=== PATIENT | female | born 1980 | race Caucasian/White ===

== ENCOUNTER 2020-05-26 01:33 | Emergency (ER) | payer MEDICAID ==
[~2020-05-26] VITALS: Ht 157.5 cm; Wt 60.4 kg
[2020-05-26 01:42] VITALS: BP 119/76
[2020-05-26] MEDS ORDERED: KETOROLAC 60 MG/2 ML VIAL IM ONE (01:55)
[2020-05-26 02:29] VITALS: BP 119/76
== END 2020-05-26 02:30 | disposition home or self-care (01) ==
LOC: MED 01:33
DX: R10.30 Lower abdominal pain, unspecified (principal); R19.7 Diarrhea, unspecified; R30.0 Dysuria; Z85.3 Personal history of malignant neoplasm of breast; Z98.890 Other specified postprocedural states
CPT/HCPCS: 81002; 81025; 96372; 99283; J1885

== ENCOUNTER 2020-12-26 12:38 | Emergency (ER) | payer MEDICAID ==
[~2020-12-26] VITALS: Ht 160 cm; Wt 67.1 kg
[2020-12-26 12:43] VITALS: BP 113/82
[2020-12-26 13:17] LABS: BASOPHILS % (AUTO) 0.4 % (0.0-2.0); EOSINOPHILS # (AUTO) 0.1 K/uL (0-0.4); EOSINOPHILS % (AUTO) 0.8 % (0.0-4.0); HEMATOCRIT 33.8 % (36-48); HEMOGLOBIN 10.8 g/dL (12.0-16.0); LYMPHOCYTES # (AUTO) 2.2 K/uL (2.5-16.5); LYMPHOCYTES % (AUTO) 24.5 % (20.5-51.1); MEAN CORPUSCULAR HEMOGLOBIN 26 pg (27-31); MEAN CORPUSCULAR HGB CONC 32 g/dL (33-37); MEAN CORPUSCULAR VOLUME 81.5 fL (80-94); MONOCYTES # (AUTO) 0.4 K/uL (0.8-1.0); MONOCYTES % (AUTO) 4.3 % (1.7-9.3); NEUTROPHILS # (AUTO) 6.2 K/uL (1.8-7.7); PLATELET COUNT (AUTO) 274 K/uL (140-450); RED BLOOD CELL COUNT(AUTO) 4.15 MIL/uL (4.20-5.40); RED CELL DISTRIBUTION WIDTH 18.6 % (11.6-13.7); WHITE BLOOD COUNT (AUTO) 8.8 K/uL (4.8-10.8)
[2020-12-26 13:37] LABS: ALBUMIN 3.8 g/dL (3.4-5.0); ANION GAP 12.4 (8-16); CARBON DIOXIDE 26.2 mmol/L (21-32); CREATININE 0.7 mg/dL (0.6-1.3); POTASSIUM 3.6 mmol/L (3.5-5.1); TOTAL BILIRUBIN 0.4 mg/dL (0.0-1.0)
[2020-12-26 14:22] LABS: APPEARANCE,URINE SL CLOUDY (CLEAR); BILIRUBIN,URINE NEGATIVE (NEGATIVE); BLOOD, URINE NEGATIVE (NEGATIVE); COLOR,URINE YELLOW (YELLOW); LEUKOCYTE ESTERASE ,URINE TRACE (NEGATIVE); NITRITE, URINE NEGATIVE (NEGATIVE); UGLUCOSE NEGATIVE (NEGATIVE)
[2020-12-26 14:25] LABS: RBC,URINE 0-5 /HPF (0-5); WBC,URINE 0-5 /HPF (0-5)
[2020-12-26] MEDS ORDERED: ONDA-24 PO (14:39)
[2020-12-26] MEDS ORDERED: FERR325E14 PO (14:39)
[2020-12-26] MEDS ORDERED: IBUP-2213 PO (14:39)
[2020-12-26] MEDS ORDERED: CEPH-588 PO ×2 (14:40→14:41)
[2020-12-26] MEDS: ACETAMINOPHEN 325 MG TAB PO ONE (14:51)
[2020-12-26] MEDS: ONDANSETRON 4 MG ODT PO ONE (14:52)
[2020-12-26 14:59] VITALS: BP 113/82
== END 2020-12-26 15:00 | disposition home or self-care (01) ==
LOC: MED 12:38
DX: N39.0 Urinary tract infection, site not specified (principal); R07.9 Chest pain, unspecified; D64.9 Anemia, unspecified; Z85.3 Personal history of malignant neoplasm of breast
CPT/HCPCS: 36415; 71045; 80053; 81001; 81025; 83690; 84484; 84702; 85025; 85379; 87086; 93005; 99285; Q0162

== ENCOUNTER 2021-02-03 13:57 | Emergency (ER) | payer MEDICAID ==
[~2021-02-03] VITALS: Ht 157.5 cm; Wt 61.2 kg
[~2021-02-03 13:57] MED LIST: CEPH-588 PO; FERR325E14 PO; IBUP-2213 PO; ONDA-24 PO
[2021-02-03 13:58] VITALS: BP 114/49
--- NOTE | 2021-02-03 14:08 | NUR ---
40 Y/O FEMALE C/O DYSURIA 02/14 DESCRIBES BURNING RADIATES TO MID LOWER BACK X 3 DAYS. PT DENIES N/V, DENIES FEVER/CHILLS, STATES SHE IS HAVING SUPRAPUBIC REGION. DENIES PMH NKA
--- NOTE | 2021-02-03 14:18 | NUR ---
ALEX Garcia at pt bedside for further evaluation.
[2021-02-03] MEDS ORDERED: NITR100C7 PO (14:38)
[2021-02-03 14:48] VITALS: BP 114/49
--- NOTE | 2021-02-03 14:49 | NUR ---
Patient discharged with v/s stable. Written and verbal after care instructions given FOR UTI and explained. Patient alert, oriented and verbalized understanding of instructions. Ambulatory with steady gait. All questions addressed prior to discharge. ID band removed. Patient advised to follow up with PMD. Rx of MACROBID PO 100MG CAP BID FOR 5 DAYS given. Patient educated on indication of medication including possible reaction and side effects. Opportunity to ask questions provided and answered.
== END 2021-02-03 14:49 | disposition home or self-care (01) ==
LOC: MED 13:57
DX: N39.0 Urinary tract infection, site not specified (principal); Z85.3 Personal history of malignant neoplasm of breast; Z79.899 Other long term (current) drug therapy
CPT/HCPCS: 36415; 81002; 81025; 87491; 99283

== ENCOUNTER 2021-02-05 11:09 | Emergency (ER) | payer MEDICAID ==
[~2021-02-05] VITALS: Ht 157.5 cm; Wt 65.3 kg
[~2021-02-05 11:09] MED LIST changes: +NITR100C7 PO
[2021-02-05 11:14] VITALS: BP 122/78
--- NOTE | 2021-02-05 11:18 | NUR ---
PT AMBULATED TO BED 3.
--- NOTE | 2021-02-05 11:22 | NUR ---
40 y/o F BIB self from home with c/c medication reaction. Patient A&Ox4, ambulatory, reports seen here for UTI and discharged with Macrobid on 02/03/21. Patient states medication compliance, however, began experiencing nausea, vomiting x 2 episodes, headache, subjective fever (home temporal temperature 97.0*) and abdominal pain. Patient reports R flank pain 5/10, sharp/intermittent, radiating to low back. Reports this abdominal pain is new from UTI symptoms and states "This pain wasn't here on Tuesday." Patient reports Tylenol "half a pill of 200mg" this morning @ 1AM with relief to symptoms. Patient denies any recent illness at home or Covid vaccinations. Last BM: Tuesday; normal. Bowel sounds normoactive x 4 quadrants; skin pink/dry/warm. LMP 01/30/2021. Bed locked in lowest position, side rails x 1, call light in reach. PMH: Anemia, breast cancer 8 yrs ago Meds: Macrobid NKA Sx: Denies
--- NOTE | 2021-02-05 11:40 | NUR ---
Dr. Roque is evaluating patient at bedside.
[2021-02-05] MEDS ORDERED: ONDANSETRON 4 MG ODT PO ONE (11:50)
--- NOTE | 2021-02-05 11:50 | NUR ---
Dr. Roque is reevaluating patient at bedside.
[2021-02-05] MEDS ORDERED: cephALEXin 500 MG CAP ONE (11:54)
[2021-02-05] MEDS ORDERED: cephALEXin 500 MG CAP PO ONE (11:55)
--- NOTE | 2021-02-05 12:04 | NUR ---
Urine sample collected, handed to CPT Marco at ER bedside.
[2021-02-05] MEDS ORDERED: CEPH-588 PO (12:23)
--- NOTE | 2021-02-05 12:39 | NUR ---
Patient resting in position of comfort; semi-fowlers. VSS; respirations even/unlabored. Bed locked in lowest position, side rails x 1, call light in reach.
[2021-02-05 12:45] VITALS: BP 122/78
== END 2021-02-05 12:45 | disposition home or self-care (01) ==
LOC: MED 11:09
DX: N30.90 Cystitis, unspecified without hematuria (principal); T37.8X5A Adverse effect of other specified systemic anti-infectives and antiparasitics, initial encounter; D64.9 Anemia, unspecified; Z85.3 Personal history of malignant neoplasm of breast; Y92.89 Other specified places as the place of occurrence of the external cause
CPT/HCPCS: 81002; 81025; 87086; 99283; Q0162

== ENCOUNTER 2022-04-12 12:01 | Emergency (ER) | payer MEDICAID ==
[~2022-04-12] VITALS: Ht 160 cm; Wt 58.1 kg
[~2022-04-12 12:01] MED LIST changes: +ONDA-188 PO; -ONDA-24 PO
[2022-04-12 12:05] VITALS: BP 111/72
--- NOTE | 2022-04-12 12:15 | NUR ---
COVID [place], FLU SWABS DONE.
--- NOTE | 2022-04-12 12:20 | NUR ---
BIB SELF C/O COUGH, 5/10 SORE THROAT X 1 WEEK AND C/O RUNNY NOSE & 2/10 MID CHEST PAIN WHILE COUGHING X 3 DAYS.
--- NOTE | 2022-04-12 12:35 | NUR ---
Patient being evaluated by ALEX GARCIA at [facility].
[2022-04-12] MEDS ORDERED: IBUP-2213 PO (12:46)
[2022-04-12] MEDS ORDERED: PROM118S5 PO (12:46)
[2022-04-12] MEDS ORDERED: BENZ-300 PO (12:46)
[2022-04-12 12:55] VITALS: BP 111/75
--- NOTE | 2022-04-12 12:59 | NUR ---
Patient discharged with v/s stable. Written and verbal after care instructions given and explained. Patient alert, oriented and verbalized understanding of instructions. Ambulatory with steady gait. All questions addressed prior to discharge. ID band removed. Patient advised to follow up with PMD. Rx of CEPACOL SORE THRAT LOZENGE,IBU,PROMETHAZINE given. Patient educated on indication of medication including possible reaction and side effects. Opportunity to ask questions provided and answered.
== END 2022-04-12 12:55 | disposition home or self-care (01) ==
LOC: MED 12:01
DX: J06.9 Acute upper respiratory infection, unspecified (principal); Z20.822 Contact with and (suspected) exposure to COVID-19; R09.81 Nasal congestion; J02.9 Acute pharyngitis, unspecified; Z79.899 Other long term (current) drug therapy; Z85.3 Personal history of malignant neoplasm of breast
CPT/HCPCS: 99283

== ENCOUNTER 2023-10-01 09:41 | Emergency (ER) | payer MEDICAID ==
[~2023-10-01] VITALS: Ht 157.5 cm; Wt 59.0 kg
[~2023-10-01 09:41] MED LIST changes: +BENZ-300 PO; +PROM118S5 PO
[2023-10-01 10:03] VITALS: BP 107/66; PULSE 82; RESP 16; TEMP 97.9; O2SAT 98
[2023-10-01 10:55] LABS: APPEARANCE,URINE CLEAR (CLEAR); BILIRUBIN,URINE NEGATIVE (NEGATIVE); BLOOD, URINE TRACE-I (NEGATIVE); COLOR,URINE YELLOW (YELLOW); LEUKOCYTE ESTERASE ,URINE NEGATIVE (NEGATIVE); NITRITE, URINE NEGATIVE (NEGATIVE); PH,URINE 7.5 (5.0-9.0); PROTEIN,URINE NEGATIVE (NEGATIVE); UGLUCOSE NEGATIVE (NEGATIVE); UROBILINOGEN,URINE 0.2 EU/dL (0.2 - 1)
[2023-10-01 12:10] VITALS: BP 108/66; PULSE 76; RESP 18; TEMP 98.2
[2023-10-01 12:13] LABS: BASOPHILS % (AUTO) 0.5 % (0.0-2.0); EOSINOPHILS # (AUTO) 0.1 K/uL (0-0.4); EOSINOPHILS % (AUTO) 1.5 % (0.0-4.0); HEMATOCRIT 31.4 % (36-48); HEMOGLOBIN 10.7 g/dL (12.0-16.0); LYMPHOCYTES # (AUTO) 2.6 K/uL (2.5-16.5); LYMPHOCYTES % (AUTO) 32.4 % (20.5-51.1); MEAN CORPUSCULAR HEMOGLOBIN 33 pg (27-31); MEAN CORPUSCULAR HGB CONC 34 g/dL (33-37); MEAN CORPUSCULAR VOLUME 96.2 fL (80-94); MONOCYTES # (AUTO) 0.5 K/uL (0.8-1.0); MONOCYTES % (AUTO) 6.6 % (1.7-9.3); NEUTROPHILS # (AUTO) 4.8 K/uL (1.8-7.7); PLATELET COUNT (AUTO) 279 K/uL (140-450); RED BLOOD CELL COUNT(AUTO) 3.26 MIL/uL (4.20-5.40); RED CELL DISTRIBUTION WIDTH 13.9 % (11.6-13.7); WHITE BLOOD COUNT (AUTO) 8.1 K/uL (4.8-10.8)
[2023-10-01] MEDS: KETOROLAC 30 MG/ML VIAL IM ONE (12:44)
[2023-10-01 12:48] LABS: ANION GAP 14.4 (8-16); CALCIUM 8.8 mg/dL (8.5-10.1); CARBON DIOXIDE 26.4 mmol/L (21-32); CREATININE 0.6 mg/dL (0.6-1.3); POTASSIUM 3.8 mmol/L (3.5-5.1)
[2023-10-01 12:52] LABS: ALBUMIN 3.1 g/dL (3.4-5.0); TOTAL BILIRUBIN 0.2 mg/dL (0.0-1.0); TOTAL PROTEIN, SERUM 7.6 g/dL (6.4-8.2)
[2023-10-01 12:59] LABS: LACTIC ACID 0.5 mmol/L (0.4-2.0)
[2023-10-01] MEDS ORDERED: ACET-10509 PO (13:30)
[2023-10-01] MEDS ORDERED: PHEN-1877 PO (13:30)
[2023-10-01] MEDS ORDERED: CYCL-711 PO (13:30)
[2023-10-01] MEDS ORDERED: LID5T TP (13:30)
[2023-10-01 13:39] VITALS: O2SAT 98
== END 2023-10-01 13:57 | disposition home or self-care (01) ==
LOC: MED 09:41
DX: R10.31 Right lower quadrant pain (principal); R30.0 Dysuria; Z79.899 Other long term (current) drug therapy
CPT/HCPCS: 36415; 74176; 80053; 81003; 81025; 83605; 83690; 85025; 87040; 96372; 99285; J1885

== ENCOUNTER 2023-10-17 23:02 | Emergency (ER) | payer MEDICAID ==
[~2023-10-17] VITALS: Ht 160 cm; Wt 58.1 kg
[~2023-10-17 23:02] MED LIST changes: +ACET-10509 PO; +CYCL-711 PO; +LID5T TP; +PHEN-1877 PO
[2023-10-17 23:15] VITALS: BP 112/71; PULSE 104; RESP 15; TEMP 98.7; O2SAT 99
[2023-10-17 23:47] LABS: APPEARANCE,URINE SL CLOUDY (CLEAR); BILIRUBIN,URINE NEGATIVE (NEGATIVE); BLOOD, URINE 3+ (NEGATIVE); COLOR,URINE RED (YELLOW); LEUKOCYTE ESTERASE ,URINE TRACE (NEGATIVE); NITRITE, URINE NEGATIVE (NEGATIVE); PH,URINE 6.5 (5.0-9.0); PROTEIN,URINE 3+ (NEGATIVE); UGLUCOSE NEGATIVE (NEGATIVE)
[2023-10-17 23:49] LABS: RBC,URINE 50-80 /HPF (0-5)
[2023-10-17 23:50] LABS: BACTERIA,URINE 1+ /HPF (None Seen); MUCUS,URINE None Seen /LPF (None Seen); SQUAMOUS EPITHELIAL CELL,UR 0-3 (FEW) /LPF (0-3 (FEW)); WBC,URINE 0-5 /HPF (0-5)
[2023-10-18 00:17] LABS: BASOPHILS % (AUTO) 0.5 % (0.0-2.0); EOSINOPHILS # (AUTO) 0.2 K/uL (0-0.4); EOSINOPHILS % (AUTO) 1.8 % (0.0-4.0); HEMATOCRIT 29.7 % (36-48); LYMPHOCYTES # (AUTO) 3.8 K/uL (2.5-16.5); LYMPHOCYTES % (AUTO) 43.3 % (20.5-51.1); MEAN CORPUSCULAR HEMOGLOBIN 32 pg (27-31); MEAN CORPUSCULAR HGB CONC 34 g/dL (33-37); MEAN CORPUSCULAR VOLUME 96.1 fL (80-94); MONOCYTES # (AUTO) 0.6 K/uL (0.8-1.0); NEUTROPHILS # (AUTO) 4.2 K/uL (1.8-7.7); NEUTROPHILS % (AUTO) 47.4 % (42.2-75.2); PLATELET COUNT (AUTO) 297 K/uL (140-450); RED BLOOD CELL COUNT(AUTO) 3.09 MIL/uL (4.20-5.40); RED CELL DISTRIBUTION WIDTH 14.3 % (11.6-13.7); WHITE BLOOD COUNT (AUTO) 8.8 K/uL (4.8-10.8)
[2023-10-18 00:26] LABS: ANION GAP 9.5 (8-16); CALCIUM 8.7 mg/dL (8.5-10.1); CREATININE 0.7 mg/dL (0.6-1.3); POTASSIUM 3.5 mmol/L (3.5-5.1)
== END 2023-10-18 04:20 | disposition left against medical advice (07) ==
LOC: MED 23:02
DX: N93.9 Abnormal uterine and vaginal bleeding, unspecified (principal); Z53.21 Procedure and treatment not carried out due to patient leaving prior to being seen by health care provider
CPT/HCPCS: 36415; 80048; 81001; 81025; 85025; 86886; 86900; 86901; 99281

== ENCOUNTER 2023-12-23 09:37 | Emergency (ER) | payer MEDICAID ==
[~2023-12-23] VITALS: Ht 157.5 cm; Wt 59.0 kg
[2023-12-23 09:39] VITALS: BP 107/62; PULSE 92; RESP 19; TEMP 98.5; O2SAT 96
[2023-12-23 10:21] LABS: APPEARANCE,URINE CLEAR (CLEAR); BILIRUBIN,URINE NEGATIVE (NEGATIVE); BLOOD, URINE 3+ (NEGATIVE); COLOR,URINE YELLOW (YELLOW); LEUKOCYTE ESTERASE ,URINE 1+ (NEGATIVE); NITRITE, URINE POSITIVE (NEGATIVE); PROTEIN,URINE 2+ (NEGATIVE); UGLUCOSE NEGATIVE (NEGATIVE); UROBILINOGEN,URINE 0.2 EU/dL (0.2 - 1)
[2023-12-23] MEDS ORDERED: KETOROLAC 30 MG/ML VIAL IM ONE (10:30)
[2023-12-23 10:37] LABS: BASOPHILS # (AUTO) 0.1 K/uL (0.00-0.22); BASOPHILS % (AUTO) 0.7 % (0.0-2.0); EOSINOPHILS # (AUTO) 0.2 K/uL (0-0.4); EOSINOPHILS % (AUTO) 1.8 % (0.0-4.0); HEMATOCRIT 24.4 % (36-48); HEMOGLOBIN 8.2 g/dL (12.0-16.0); LYMPHOCYTES # (AUTO) 2.4 K/uL (2.5-16.5); MEAN CORPUSCULAR HEMOGLOBIN 33 pg (27-31); MEAN CORPUSCULAR HGB CONC 34 g/dL (33-37); MEAN CORPUSCULAR VOLUME 97.7 fL (80-94); MONOCYTES # (AUTO) 0.5 K/uL (0.8-1.0); MONOCYTES % (AUTO) 5.7 % (1.7-9.3); NEUTROPHILS # (AUTO) 5.8 K/uL (1.8-7.7); NEUTROPHILS % (AUTO) 64.8 % (42.2-75.2); PLATELET COUNT (AUTO) 316 K/uL (140-450); RED CELL DISTRIBUTION WIDTH 14.6 % (11.6-13.7)
[2023-12-23 10:43] LABS: BACTERIA,URINE FEW /HPF (None Seen); RBC,URINE >20 (MANY) /HPF (0-5); SQUAMOUS EPITHELIAL CELL,UR 0-3 (FEW) /LPF (0-3 (FEW)); WBC,URINE 0-5 /HPF (0-5)
[2023-12-23 11:00] LABS: INR 0.94 (0.8-1.2); PARTIAL THROMBOPLASTIN TIME 22.7 secs (22-35.6); PROTHROMBIN TIME 9.9 secs (10.8-13.4)
[2023-12-23 11:05] LABS: ALBUMIN 2.9 g/dL (3.4-5.0); ANION GAP 10.8 (8-16); CALCIUM 8.6 mg/dL (8.5-10.1); CARBON DIOXIDE 27.5 mmol/L (21-32); CREATININE 0.7 mg/dL (0.6-1.3); POTASSIUM 3.3 mmol/L (3.5-5.1); TOTAL BILIRUBIN 0.2 mg/dL (0.0-1.0)
[2023-12-23] MEDS ORDERED: cefTRIAXone 1,000 MG VIAL ONE (13:59)
[2023-12-23] MEDS ORDERED: LIDOCAINE MPF 1% 5 ML ONE (14:00)
[2023-12-23] MEDS: KETOROLAC 30 MG/ML VIAL IM ONE (14:09)
[2023-12-23] MEDS: cefTRIAXone 1,000 MG in LIDOCAINE MPF 1% 2.1 ML IM ONE (14:10)
[2023-12-23] MEDS ORDERED: NITR100C7 PO (15:02)
[2023-12-23 15:17] VITALS: BP 115/69; PULSE 107; RESP 15; TEMP 98.5; O2SAT 100
== END 2023-12-23 15:18 | disposition home or self-care (01) ==
LOC: MED 09:37
DX: N39.0 Urinary tract infection, site not specified (principal); D25.9 Leiomyoma of uterus, unspecified; Z79.899 Other long term (current) drug therapy
CPT/HCPCS: 36415; 76830; 80053; 81001; 81025; 83690; 85025; 85610; 85730; 86886; 86900; 86901; 87086; 96372; 99285; J0696; J1885; J2001; Q0092